=== PATIENT | male | born 1955 | race African-American/Black ===

== ENCOUNTER 2017-10-14 13:55 | Emergency (ER) | payer MEDICAID, OTHER ==
[~2017-10-14] VITALS: Ht 175.3 cm; Wt 110.0 kg
[2017-10-14 15:59] LABS: BASOPHILS % 0.3 % (0.0-2.0); EOSINOPHILS % 0.2 % (0.0-5.0); HEMATOCRIT. 41.1 % (42.0-52.0); HEMOGLOBIN. 13.3 g/dL (14.0-18.0); LYMPHOCYTES % 12.4 % (20.0-50.0); MEAN CORPUSCULAR HEMOGLOBIN 28.4 pg (28.0-32.0); MEAN CORPUSCULAR VOLUME 87.7 fL (80.0-94.0); MEAN PLATELET VOLUME 10.5 fl (7.4-10.4); MONOCYTES % 7.1 % (2.0-8.0); PLATELET 231 x1000/uL (130-400); RED BLOOD CELL COUNT 4.69 mill/uL (4.7-6.1); RED CELL DISTRIBUTION WIDTH 14.3 % (11.6-14.6)
[2017-10-14 16:06] LABS: CARBON DIOXIDE 27 mEq/L (21-32); CHLORIDE 102 mEq/L (98-107); PROTHROMBIN TIME 10.2 sec (9.4-11.6)
[2017-10-14 16:14] LABS: TROPONIN I 0.03 ng/mL (0.00-0.04)
[2017-10-14 19:30] VITALS: BP 165/41
== END 2017-10-14 20:00 | disposition left against medical advice (07) ==
LOC: ER 13:55 → EDBEDREQ 16:43 → ER 20:00 → ENRESERV 21:03 → CANRESERV 21:03 → CANBEDREQ 10-15 08:06
DX: G45.9 Transient cerebral ischemic attack, unspecified (principal); I25.2 Old myocardial infarction; E11.9 Type 2 diabetes mellitus without complications; J44.9 Chronic obstructive pulmonary disease, unspecified; I10 Essential (primary) hypertension; R53.1 Weakness; R07.9 Chest pain, unspecified; R20.0 Anesthesia of skin
CPT/HCPCS: 36415; 70450; 71045; 80053; 82962; 83880; 84484; 85025; 85610; 93005; 99285; Z7610

== ENCOUNTER 2018-04-28 15:51 | Inpatient (IN) | payer SELFPAY ==
[~2018-04-28] VITALS: Ht 193 cm; Wt 100.7 kg
[2018-04-28] MEDS ORDERED: CLOP75TA33 PO (15:58)
[2018-04-28] MEDS ORDERED: ATOR10TA69 PO (15:58)
[2018-04-28] MEDS ORDERED: EMPA10TA PO (15:58)
[2018-04-28] MEDS ORDERED: ASPI-1159 PO (15:58)
[2018-04-28] MEDS ORDERED: LISI10TA5 PO (15:58)
[2018-04-28] MEDS ORDERED: METO-396 PO (15:58)
[2018-04-28] MEDS ORDERED: SITA1TBM4 PO (15:58)
[2018-04-28] MEDS ORDERED: ONDANSETRON HCL 4MG/2ML VIAL IV STA (16:40)
[2018-04-28] MEDS ORDERED: MORPHINE SULFATE 4 MG/ML CPJ (NOT FOR IM USE) IV STA (16:40)
[2018-04-28] MEDS ORDERED: ASPIRIN 81MG TABLET PO ONE (16:45)
[2018-04-28 17:03] LABS: BASOPHILS % 0.3 % (0.0-2.0); EOSINOPHILS % 0.1 % (0.0-5.0); HEMATOCRIT. 41.1 % (42.0-52.0); HEMOGLOBIN. 13.5 g/dL (14.0-18.0); LYMPHOCYTES % 17.8 % (20.0-50.0); MEAN CORPUSCULAR VOLUME 88.2 fL (80.0-94.0); MONOCYTES % 6.7 % (2.0-8.0); NEUTROPHILS % 75.1 % (40.0-76.0); PLATELET 205 x1000/uL (130-400); RED BLOOD CELL COUNT 4.66 mill/uL (4.7-6.1); RED CELL DISTRIBUTION WIDTH 14.3 % (11.6-14.6)
[2018-04-28 17:08] LABS: CHLORIDE 101 mEq/L (98-107); INR 1.1; PROTHROMBIN TIME 11.1 sec (9.4-11.6)
[2018-04-28 17:12] LABS: ETHANOL BLOOD < 10 mg/dL
[2018-04-28 18:20] LABS: D-DIMER 0.77 mg/L FEU (<0.50); PARTIAL THROMBOPLASTIN TIME 24.6 sec (23.4-31.0)
[2018-04-28 19:43] LABS: CLARITY URINE CLEAR (CLEAR); COLOR URINE YELLOW (YELLOW); KETONES URINE NEGATIVE (NEGATIVE); LEUKOCYTE ESTERASE URINE NEGATIVE (NEGATIVE); NITRITE URINE NEGATIVE (NEGATIVE); OCCULT BLOOD URINE NEGATIVE (NEGATIVE); PROTEIN URINE NEGATIVE (NEGATIVE); UROBILINOGEN URINE 0.2 E.U./dL (0.2-1.0)
[2018-04-28 19:52] LABS: *AMPHETAMINES SCREEN URINE NEGATIVE (NEGATIVE); *BARBITURATES SCREEN URINE NEGATIVE (NEGATIVE); *BENZODIAZEPINES SCREEN URINE NEGATIVE (NEGATIVE); *COCAINE SCREEN URINE NEGATIVE (NEGATIVE)
[2018-04-28 19:53] LABS: METHADONE URINE SCREEN NEGATIVE (NEGATIVE); OPIATES URINE SCREEN PRESUMTIVE POSITIVE (NEGATIVE); PHENCYCLIDINE URINE SCREEN NEGATIVE (NEGATIVE)
[2018-04-28 20:00] LABS: CANNABINOID URINE SCREEN NEGATIVE (NEGATIVE)
[2018-04-28] MEDS ORDERED: CLONIDINE 0.1MG TABLET PO PRN (20:45)
[2018-04-28] MEDS ORDERED: LORAZEPAM 0.5MG TABLET PO PRN (20:45)
[2018-04-28] MEDS ORDERED: ACETAMINOPHEN 325MG TABLET PO PRN (20:45)
[2018-04-28] MEDS ORDERED: ENOXAPARIN 40MG/0.4ML SYR SUBCUT SCH (20:45)
[2018-04-28] MEDS ORDERED: ONDANSETRON HCL 4MG/2ML VIAL IV PRN (20:45)
[2018-04-28] MEDS ORDERED: DOCUSATE SODIUM 100MG CAPSULE PO PRN (20:45)
[2018-04-28] MEDS ORDERED: GUAIFENESIN 200MG/10ML SUGAR FREE UDC PO PRN (20:45)
[2018-04-28] MEDS ORDERED: DEXTROSE 50% WATER 50ML SYRINGE IV PRN ×2 (20:45→23:45)
[2018-04-28] MEDS ORDERED: MAGNESIUM/ALUMINUM HYDROXIDE/SIMETHICONE 30ML UDC PO PRN (20:45)
[2018-04-28] MEDS ORDERED: IPRATROPIUM/ALBUTEROL 0.5-3(2.5)MG/3ML NEB INH PRN (20:45)
[2018-04-28] MEDS ORDERED: DIPHENHYDRAMINE 50MG/ML VIAL IV PRN (20:45)
[2018-04-28] MEDS ORDERED: NITROGLYCERIN 0.4MG TABLET SL SL PRN (20:45)
[2018-04-28] MEDS ORDERED: FAMOTIDINE 20MG TABLET PO SCH (21:00)
[2018-04-28] MEDS ORDERED: ASCORBIC ACID 500 MG TABLET PO SCH (21:00)
[2018-04-28] MEDS ORDERED: LISINOPRIL 20MG TABLET PO SCH (21:00)
[2018-04-28] MEDS ORDERED: BLOOD SUGAR DIAGNOSTIC STRIP TEST SCH (21:00)
[2018-04-28] MEDS ORDERED: INSULIN LISPRO 100 UNITS/ML SUBCUT SCH (21:00)
[2018-04-28] MEDS ORDERED: METOPROLOL TARTRATE 25MG TABLET PO SCH (21:00)
[2018-04-28] MEDS ORDERED: ATORVASTATIN CALCIUM 10MG TABLET PO SCH (21:00)
[2018-04-28 23:10] LABS: CREATINE KINASE MB FRACTION 1.3 ng/mL (0.5-3.6)
[2018-04-28] MEDS ORDERED: ZOLPIDEM TARTRATE 5MG TABLET PO PRN (23:30)
[2018-04-28] MEDS ORDERED: NA PHOS,M-B/NA PHOS,DI-BA ENEMA 118ML PR PRN (23:30)
[2018-04-28] MEDS ORDERED: KETOROLAC 15MG/ML VIAL IV PRN (23:30)
[2018-04-28] MEDS ORDERED: ONDANSETRON 4MG ODT PO PRN (23:45)
[2018-04-29] VITALS: BP 126/64
[2018-04-29] MEDS ORDERED: AMLO10TA80 PO (00:32)
[2018-04-29 01:17] VITALS: BP 126/64
[2018-04-29 04:00] VITALS: BP 120/68
[2018-04-29] MEDS ORDERED: BLOOD SUGAR DIAGNOSTIC STRIP TEST SCH (07:20)
[2018-04-29] MEDS ORDERED: INSULIN LISPRO 100 UNITS/ML SUBCUT SCH (07:50)
[2018-04-29] MEDS ORDERED: LISINOPRIL 20MG TABLET PO SCH (09:00)
[2018-04-29] MEDS ORDERED: ASPIRIN 325MG EC TABLET PO SCH ×2 (09:00→10:00)
[2018-04-29] MEDS ORDERED: METOPROLOL TARTRATE 25MG TABLET PO SCH (09:00)
[2018-04-29] MEDS ORDERED: FAMOTIDINE 20MG TABLET PO SCH (09:00)
[2018-04-29] MEDS ORDERED: CLOPIDOGREL 75MG TABLET PO SCH ×2 (09:00→10:00)
[2018-04-29] MEDS ORDERED: ZINC SULFATE 220 MG ( 50 ) CAPSULE PO SCH ×2 (09:00)
[2018-04-29] MEDS ORDERED: ASCORBIC ACID 500 MG TABLET PO SCH (09:00)
[2018-04-29] MEDS ORDERED: ENOXAPARIN 40MG/0.4ML SYR SUBCUT SCH (09:00)
[2018-04-29 09:45] VITALS: BP 116/67
[2018-04-29 12:08] VITALS: BP 115/62
[2018-04-29 12:19] VITALS: BP 112/65
[2018-04-29] MEDS ORDERED: ATORVASTATIN CALCIUM 10MG TABLET PO SCH (21:00)
== END 2018-04-29 13:45 | disposition home or self-care (01) | DRG 198 ==
LOC: ER 18:31 → EDBEDREQ 20:18 → EDBEDREQTM 20:18 → ENRESERV 22:06 → 6WST 23:40 → ER 23:52
PROVIDERS: ADMIT Internal Medicine; ATTEND Internal Medicine
DX: R07.89 Other chest pain (principal); I25.2 Old myocardial infarction; I10 Essential (primary) hypertension; E11.9 Type 2 diabetes mellitus without complications; E78.00 Pure hypercholesterolemia, unspecified; J44.9 Chronic obstructive pulmonary disease, unspecified; Z86.73 Personal history of transient ischemic attack (TIA), and cerebral infarction without residual deficits; Z89.421 Acquired absence of other right toe(s); Z79.02 Long term (current) use of antithrombotics/antiplatelets; Z79.4 Long term (current) use of insulin; Z79.82 Long term (current) use of aspirin; Z79.899 Other long term (current) drug therapy
CPT/HCPCS: 36415; 70450; 71045; 80053; 80061; 80305; 81003; 82550; 82553; 82962; 83036; 83880; 84484; 85025; 85379; 85610; 85730; 93005; 93970; 96374; 96375; 99285; G0482; J1650; J2270; J2405

== ENCOUNTER 2018-10-25 16:30 | Inpatient (IN) | payer MEDICAID, OTHER ==
[~2018-10-25] VITALS: Ht 193 cm; Wt 100.2 kg
[~2018-10-25 16:30] MED LIST: AMLO10TA80 PO; ASPI-1159 PO; ATOR10TA69 PO; CLOP75TA33 PO; EMPA10TA PO; LISI10TA5 PO; METO-396 PO; SITA1TBM4 PO
[2018-10-25] MEDS ORDERED: SODIUM CHLORIDE 0.9% 1,000 ML IV ONE (16:43)
[2018-10-25 17:26] LABS: BASOPHILS % 0.3 % (0.0-2.0); HEMATOCRIT. 37.1 % (42.0-52.0); HEMOGLOBIN. 12.1 g/dL (14.0-18.0); LYMPHOCYTES % 11.7 % (20.0-50.0); MEAN PLATELET VOLUME 9.6 fl (7.4-10.4); MONOCYTES % 6.6 % (2.0-8.0); NEUTROPHILS % 81.4 % (40.0-76.0); PLATELET 208 x1000/uL (130-400); RED BLOOD CELL COUNT 4.03 mill/uL (4.7-6.1); RED CELL DISTRIBUTION WIDTH 14.9 % (11.6-14.6)
[2018-10-25 17:27] LABS: CHLORIDE 100 mEq/L (98-107)
[2018-10-25 17:29] LABS: INR 1.1; PROTHROMBIN TIME 11.2 sec (9.1-11.1)
[2018-10-25 17:31] LABS: ETHANOL BLOOD < 10 mg/dL
[2018-10-25 17:34] LABS: LDL CHOLESTEROL 116 mg/dL (5-100)
[2018-10-25 17:41] LABS: CLARITY URINE CLEAR (CLEAR); COLOR URINE YELLOW (YELLOW); KETONES URINE TRACE (NEGATIVE); LEUKOCYTE ESTERASE URINE NEGATIVE (NEGATIVE); NITRITE URINE NEGATIVE (NEGATIVE); OCCULT BLOOD URINE NEGATIVE (NEGATIVE); PH URINE 7.5 (4.5-8.0); PROTEIN URINE 1+ (NEGATIVE); SPECIFIC GRAVITY URINE 1.018 (1.005-1.030)
[2018-10-25 17:54] LABS: *BARBITURATES SCREEN URINE NEGATIVE (NEGATIVE); *BENZODIAZEPINES SCREEN URINE NEGATIVE (NEGATIVE); *COCAINE SCREEN URINE NEGATIVE (NEGATIVE); METHADONE URINE SCREEN NEGATIVE (NEGATIVE); OPIATES URINE SCREEN NEGATIVE (NEGATIVE)
[2018-10-25 17:55] LABS: *AMPHETAMINES SCREEN URINE NEGATIVE (NEGATIVE); CANNABINOID URINE SCREEN NEGATIVE (NEGATIVE); PHENCYCLIDINE URINE SCREEN NEGATIVE (NEGATIVE)
[2018-10-25] MEDS ORDERED: ONDANSETRON HCL 4MG/2ML INJ IV PRN (18:30)
[2018-10-25] MEDS ORDERED: CLONIDINE 0.1MG TABLET PO PRN (18:30)
[2018-10-25] MEDS ORDERED: GUAIFENESIN 200MG/10ML SUGAR FREE UDC PO PRN (18:30)
[2018-10-25] MEDS ORDERED: MAGNESIUM/ALUMINUM HYDROXIDE/SIMETHICONE 30ML UDC PO PRN (18:30)
[2018-10-25] MEDS ORDERED: CLOPIDOGREL 75MG TABLET PO NR (19:34)
[2018-10-26] VITALS (7 sets, daily range): BP systolic 135–164; BP diastolic 68–84
[2018-10-26] MEDS ORDERED: GLIP10TA10 MT (00:37)
[2018-10-26] MEDS ORDERED: DEXTROSE 50% WATER 50ML SYRINGE IV PRN (00:45)
[2018-10-26] MEDS: METOPROLOL TARTRATE 25MG TABLET PO SCH ×3 (00:45→20:37)
[2018-10-26] MEDS: BLOOD SUGAR DIAGNOSTIC STRIP TEST SCH ×4 (06:23→20:38)
[2018-10-26] MEDS: HYDROCODONE/ACETAMINOPHEN 5/325MG TABLET PO PRN ×2 (06:36→16:01)
[2018-10-26] MEDS: INSULIN LISPRO 100 UNITS/ML SUBCUT SCH ×4 (06:37→20:39)
[2018-10-26 07:24] LABS: BASOPHILS % 0.5 % (0.0-2.0); EOSINOPHILS % 0.1 % (0.0-5.0); HEMATOCRIT. 32.7 % (42.0-52.0); LYMPHOCYTES % 15.8 % (20.0-50.0); MEAN CORPUSCULAR HEMOGLOBIN 30.8 pg (28.0-32.0); MEAN CORPUSCULAR VOLUME 91.6 fL (80.0-94.0); MEAN PLATELET VOLUME 9.7 fl (7.4-10.4); MONOCYTES % 9.1 % (2.0-8.0); NEUTROPHILS % 74.5 % (40.0-76.0); PLATELET 186 x1000/uL (130-400); RED BLOOD CELL COUNT 3.58 mill/uL (4.7-6.1); RED CELL DISTRIBUTION WIDTH 14.8 % (11.6-14.6)
[2018-10-26] MEDS ORDERED: MULT-1234 MT (08:14)
[2018-10-26] MEDS: AMLODIPINE 10MG TABLET PO SCH (09:24)
[2018-10-26] MEDS: CLOPIDOGREL 75MG TABLET PO SCH (09:24)
[2018-10-26 11:57] LABS: CHLORIDE 103 mEq/L (98-107)
[2018-10-26] MEDS: ATORVASTATIN CALCIUM 40MG TABLET PO SCH (20:37)
[2018-10-26] MEDS: HYDROMORPHONE HCL/PF 2MG/ML CPJ IV PRN (20:38)
[2018-10-26] MEDS ORDERED: DIPHENHYDRAMINE 50MG/ML VIAL IV PRN (21:15)
[2018-10-27] VITALS: BP 150/82
[2018-10-27] MEDS: HYDROMORPHONE HCL/PF 2MG/ML CPJ IV PRN ×2 (02:42→21:41)
[2018-10-27 04:00] VITALS: BP 131/79
[2018-10-27] MEDS: ACETAMINOPHEN 325MG TABLET PO PRN ×2 (04:41→15:55)
[2018-10-27] MEDS: BLOOD SUGAR DIAGNOSTIC STRIP TEST SCH ×4 (06:28→20:45)
[2018-10-27] MEDS: INSULIN LISPRO 100 UNITS/ML SUBCUT SCH ×4 (06:28→20:48)
[2018-10-27] MEDS: CLOPIDOGREL 75MG TABLET PO SCH (09:11)
[2018-10-27] MEDS: AMLODIPINE 10MG TABLET PO SCH (09:12)
[2018-10-27] MEDS: METOPROLOL TARTRATE 25MG TABLET PO SCH ×2 (09:13→20:42)
[2018-10-27 12:00] VITALS: BP 155/81
[2018-10-27] MEDS ORDERED: LEVOFLOXACIN 500MG PREMIX 100 ML IV SCH (14:00)
[2018-10-27] MEDS: TAMSULOSIN HCL 0.4MG SR CAPSULE PO SCH (14:40)
[2018-10-27 16:21] VITALS: BP 154/78
[2018-10-27 20:00] VITALS: BP 150/80
[2018-10-27] MEDS: ATORVASTATIN CALCIUM 40MG TABLET PO SCH (20:41)
[2018-10-27] MEDS: HYDROCODONE/ACETAMINOPHEN 5/325MG TABLET PO PRN (21:35)
[2018-10-28] VITALS: BP 149/84
[2018-10-28] MEDS: ACETAMINOPHEN 325MG TABLET PO PRN (00:06)
[2018-10-28 04:00] VITALS: BP 137/74
[2018-10-28] MEDS: BLOOD SUGAR DIAGNOSTIC STRIP TEST SCH ×2 (06:35→11:45)
[2018-10-28] MEDS: INSULIN LISPRO 100 UNITS/ML SUBCUT SCH ×2 (06:41→13:06)
[2018-10-28] MEDS: AMLODIPINE 10MG TABLET PO SCH (08:39)
[2018-10-28] MEDS: CLOPIDOGREL 75MG TABLET PO SCH (08:39)
[2018-10-28] MEDS: TAMSULOSIN HCL 0.4MG SR CAPSULE PO SCH (08:40)
[2018-10-28] MEDS: METOPROLOL TARTRATE 25MG TABLET PO SCH (08:40)
[2018-10-28 12:11] VITALS: BP 142/73
[2018-10-28 13:22] VITALS: BP 142/73
== END 2018-10-28 13:50 | disposition home or self-care (01) | DRG 47 ==
LOC: ER 16:30 → SUPCPDRO 18:24 → 5WST 18:25 → EDBEDREQTM 18:28 → EDBEDREQ 18:28 → EDBEDREQSVC 18:28 → ENRESERV 20:45
PROVIDERS: ADMIT Hospitalist; ATTEND Hospitalist
DX: G45.9 Transient cerebral ischemic attack, unspecified (principal); G93.40 Encephalopathy, unspecified; E11.9 Type 2 diabetes mellitus without complications; E78.5 Hyperlipidemia, unspecified; R39.11 Hesitancy of micturition; R50.9 Fever, unspecified; J44.9 Chronic obstructive pulmonary disease, unspecified; I10 Essential (primary) hypertension; I25.2 Old myocardial infarction; Z86.73 Personal history of transient ischemic attack (TIA), and cerebral infarction without residual deficits; Z79.82 Long term (current) use of aspirin; Z79.899 Other long term (current) drug therapy; Z89.9 Acquired absence of limb, unspecified
CPT/HCPCS: 36415; 70551; 71045; 80305; 82962; 83036; 83721; 84484; 93005; 93880; 93970; 96360; 97161; 99285; G0482; J1170; J1200; J1815; J1956; J7030; J7050

== ENCOUNTER 2019-06-11 19:59 | Inpatient (IN) | payer MEDICAID ==
[~2019-06-11] VITALS: Ht 193 cm; Wt 100.2 kg
[~2019-06-11 19:59] MED LIST changes: -AMLO10TA80 PO; -ASPI-1159 PO; +ASPI-1393 PO; -EMPA10TA PO; +GLIP10TA10 MT; +MULT-1234 MT
[2019-06-11] MEDS ORDERED: SODIUM CHLORIDE 0.9% 1,000 ML IV ONE ×2 (20:30→21:36)
[2019-06-11 21:00] LABS: BASOPHILS % 0.2 % (0.0-2.0); EOSINOPHILS % 0.6 % (0.0-5.0); HEMATOCRIT. 30.3 % (42.0-52.0); HEMOGLOBIN. 10.2 g/dL (14.0-18.0); LYMPHOCYTES % 38.3 % (20.0-50.0); MEAN CORPUSCULAR HEMOGLOBIN 29.8 pg (28.0-32.0); MEAN CORPUSCULAR VOLUME 88.7 fL (80.0-94.0); MEAN PLATELET VOLUME 9.2 fl (7.4-10.4); MONOCYTES % 8.7 % (2.0-8.0); NEUTROPHILS % 52.2 % (40.0-76.0); PLATELET 195 x1000/uL (130-400); RED BLOOD CELL COUNT 3.41 mill/uL (4.7-6.1); RED CELL DISTRIBUTION WIDTH 14.3 % (11.6-14.6)
[2019-06-11 21:07] LABS: PROTHROMBIN TIME 10.7 sec (9.6-11.0)
[2019-06-11 21:10] LABS: CHLORIDE 104 mEq/L (98-107)
[2019-06-11 21:14] LABS: ETHANOL BLOOD 214 mg/dL
[2019-06-11] MEDS ORDERED: DEXTROSE 50% WATER 50ML SYRINGE IV ONE (21:30)
[2019-06-12] VITALS (21 sets, daily range): BP systolic 115–173; BP diastolic 59–83
[2019-06-12] MEDS ORDERED: CALCIUM CHLORIDE 1,000 MG in DEXT 5% WATER 90 ML IV ONE (04:30)
[2019-06-12] MEDS ORDERED: GLUCAGON,HUMAN RECOMBINANT 1MG/VIAL IV SCH (05:45)
[2019-06-12] MEDS ORDERED: CALCIUM CHLORIDE 1,000 MG in DEXT 5% WATER 90 ML IV SCH (05:45)
[2019-06-12] MEDS: DEXT 5%/0.45% NACL 1000ML 1,000 ML IV SCH ×2 (06:14→14:35)
[2019-06-12] MEDS ORDERED: ONDANSETRON HCL 4MG/2ML INJ IV PRN (06:15)
[2019-06-12] MEDS ORDERED: IPRATROPIUM/ALBUTEROL 0.5-3(2.5)MG/3ML NEB HHN PRN (06:15)
[2019-06-12] MEDS ORDERED: MORPHINE SULFATE 2 MG/ML CPJ (NOT FOR IM USE) IV PRN (06:15)
[2019-06-12] MEDS ORDERED: CLONIDINE 0.1MG TABLET PO PRN (06:15)
[2019-06-12] MEDS ORDERED: NA PHOS,M-B/NA PHOS,DI-BA ENEMA 118ML PR PRN (06:15)
[2019-06-12] MEDS ORDERED: LORAZEPAM 2MG/ML CPJ IV PRN (06:15)
[2019-06-12] MEDS ORDERED: GUAIFENESIN 200MG/10ML SUGAR FREE UDC PO PRN (06:15)
[2019-06-12] MEDS ORDERED: HYDROCODONE/ACETAMINOPHEN 10/325MG TABLET PO PRN (06:15)
[2019-06-12] MEDS ORDERED: DIPHENHYDRAMINE 50MG/ML VIAL IV PRN (06:15)
[2019-06-12] MEDS ORDERED: MAGNESIUM/ALUMINUM HYDROXIDE/SIMETHICONE 30ML UDC PO PRN (06:15)
[2019-06-12] MEDS ORDERED: NOREPINEPHRINE 4MG/250ML PMX 250 ML IV ONE (06:45)
[2019-06-12] MEDS ORDERED: NOREPINEPHRINE 4MG/250ML PMX 250 ML IV SCH (06:45)
[2019-06-12] MEDS ORDERED: NOREPINEPHRINE 4 MG in DEXT 5% WATER 246 ML IV ONE (07:15)
[2019-06-12 08:07] LABS: BG BASE EXCESS -14.6 mmol/L (-2.0-2.0); BG CARBOXYHEMOGLOBIN 0.3 % (0.5-1.5); BG DEOXYHEMOGLOBIN 4.5 % (0.0-5.0); BG FRACTION INSPIRED OXYGEN 21; BG HCO3 ACT 10.8 mmol/L (22.0-26.0); BG METHEMOGLOBIN 0.8 % (0.0-1.5); BG OXYGEN SATURATION 95.4 % (92.0-98.5); BG OXYHEMOGLOBIN 94.4 % (94.0-97.0); BG PCO2 24.4 mmHg (35.0-45.0); BG PH 7.264 (7.350-7.450); BG PO2 97.6 mmHg (75.0-100.0); BG SAMPLE SITE RIGHT BRACHIAL; BG TOTAL HEMOGLOBIN 10.5 g/dL (12.0-18.0); BG VENT MODE ROOM AIR
[2019-06-12] MEDS ORDERED: NOREPINEPHRINE 4 MG in DEXTROSE 5% WATER 250 ML IV PRN (09:30)
[2019-06-12] MEDS ORDERED: SODIUM BICARBONATE 8.4% 1 MEQ/ML 50ML SYR IV SCH (10:00)
[2019-06-12] MEDS ORDERED: SODIUM BICARBONATE 8.4% 1 MEQ/ML 50ML SYR IV NR ×2 (10:00)
[2019-06-12 12:09] LABS: T4 FREE 1.03 ng/dL (0.76-1.46)
[2019-06-12 12:19] LABS: BG BASE EXCESS -5.4 mmol/L (-2.0-2.0); BG DEOXYHEMOGLOBIN 4.2 % (0.0-5.0); BG FRACTION INSPIRED OXYGEN 21; BG HCO3 ACT 18.7 mmol/L (22.0-26.0); BG METHEMOGLOBIN 0.2 % (0.0-1.5); BG OXYGEN SATURATION 95.8 % (92.0-98.5); BG OXYHEMOGLOBIN 95.6 % (94.0-97.0); BG PCO2 31.8 mmHg (35.0-45.0); BG PH 7.388 (7.350-7.450); BG SAMPLE SITE RIGHT RADIAL; BG TOTAL HEMOGLOBIN 10.8 g/dL (12.0-18.0); BG VENT MODE ROOM AIR
[2019-06-12 13:34] LABS: CLARITY URINE CLEAR (CLEAR); COLOR URINE YELLOW (YELLOW); KETONES URINE TRACE (NEGATIVE); LEUKOCYTE ESTERASE URINE NEGATIVE (NEGATIVE); NITRITE URINE NEGATIVE (NEGATIVE); OCCULT BLOOD URINE NEGATIVE (NEGATIVE); PROTEIN URINE TRACE (NEGATIVE); SPECIFIC GRAVITY URINE 1.014 (1.005-1.030); UROBILINOGEN URINE 0.2 E.U./dL (0.2-1.0)
[2019-06-12 13:48] LABS: *AMPHETAMINES SCREEN URINE NEGATIVE (NEGATIVE); *BARBITURATES SCREEN URINE NEGATIVE (NEGATIVE); *BENZODIAZEPINES SCREEN URINE NEGATIVE (NEGATIVE); *COCAINE SCREEN URINE NEGATIVE (NEGATIVE); CANNABINOID URINE SCREEN NEGATIVE (NEGATIVE); METHADONE URINE SCREEN NEGATIVE (NEGATIVE); OPIATES URINE SCREEN NEGATIVE (NEGATIVE); PHENCYCLIDINE URINE SCREEN NEGATIVE (NEGATIVE)
[2019-06-12] MEDS: SODIUM CHLORIDE 0.9% INJ 3ML FLUSH IVF SCH ×2 (13:53→22:00)
[2019-06-12 15:06] LABS: CHLORIDE 106 mEq/L (98-107)
[2019-06-12 15:13] LABS: CREATINE KINASE 528 IU/L (39-308)
[2019-06-12 15:15] LABS: CREATINE KINASE MB FRACTION 3.7 ng/mL (0.5-3.6)
[2019-06-12] MEDS ORDERED: ATOR-2 PO (15:45)
[2019-06-12] MEDS ORDERED: AMLO10TA80 PO (15:49)
[2019-06-12] MEDS ORDERED: SERT20OR6 PO (15:49)
[2019-06-12] MEDS ORDERED: OMEP20CA5 PO (15:49)
[2019-06-12] MEDS ORDERED: GABA-290 PO (15:49)
[2019-06-12] MEDS ORDERED: TAMS-11 PO (15:49)
[2019-06-12] MEDS ORDERED: SODIUM POLYSTYRENE SULFONATE 15 G/60 ML BOT PO NR (16:30)
[2019-06-12] MEDS ORDERED: DEXTROSE 50% WATER 50ML SYRINGE IV PRN (17:45)
[2019-06-12] MEDS: INSULIN LISPRO 100 UNITS/ML SUBCUT SCH ×2 (17:50→21:00)
[2019-06-12] MEDS: BLOOD SUGAR DIAGNOSTIC STRIP TEST SCH ×3 (17:51→20:27)
[2019-06-13] VITALS (34 sets, daily range): BP systolic 122–174; BP diastolic 62–94
[2019-06-13 00:42] LABS: CREATINE KINASE MB FRACTION 3.2 ng/mL (0.5-3.6)
[2019-06-13] MEDS: DEXT 5%/0.45% NACL 1000ML 1,000 ML IV SCH ×2 (01:00→12:57)
[2019-06-13] MEDS: BLOOD SUGAR DIAGNOSTIC STRIP TEST SCH ×9 (04:00→21:00)
[2019-06-13 05:51] LABS: CHLORIDE 105 mEq/L (98-107)
[2019-06-13 05:54] LABS: BASOPHILS % 0.2 % (0.0-2.0); EOSINOPHILS % 0.4 % (0.0-5.0); HEMATOCRIT. 32.5 % (42.0-52.0); HEMOGLOBIN. 10.8 g/dL (14.0-18.0); LYMPHOCYTES % 16.4 % (20.0-50.0); MEAN CORPUSCULAR HEMOGLOBIN 29.4 pg (28.0-32.0); MEAN CORPUSCULAR VOLUME 88.9 fL (80.0-94.0); MEAN PLATELET VOLUME 10.1 fl (7.4-10.4); MONOCYTES % 11.1 % (2.0-8.0); NEUTROPHILS % 71.9 % (40.0-76.0); PLATELET 189 x1000/uL (130-400); RED BLOOD CELL COUNT 3.66 mill/uL (4.7-6.1); RED CELL DISTRIBUTION WIDTH 14.3 % (11.6-14.6)
[2019-06-13] MEDS: SODIUM CHLORIDE 0.9% INJ 3ML FLUSH IVF SCH ×3 (06:00→22:00)
[2019-06-13] MEDS: INSULIN LISPRO 100 UNITS/ML SUBCUT SCH ×4 (07:46→22:32)
[2019-06-13 09:56] LABS: BG BASE EXCESS -0.6 mmol/L (-2.0-2.0); BG CARBOXYHEMOGLOBIN 0.3 % (0.5-1.5); BG DEOXYHEMOGLOBIN 3.5 % (0.0-5.0); BG FRACTION INSPIRED OXYGEN 21; BG HCO3 ACT 23.2 mmol/L (22.0-26.0); BG METHEMOGLOBIN 0.3 % (0.0-1.5); BG OXYGEN SATURATION 96.5 % (92.0-98.5); BG OXYHEMOGLOBIN 95.9 % (94.0-97.0); BG PCO2 35.2 mmHg (35.0-45.0); BG PH 7.437 (7.350-7.450); BG PO2 87.6 mmHg (75.0-100.0); BG SAMPLE SITE RIGHT RADIAL; BG TOTAL HEMOGLOBIN 11.1 g/dL (12.0-18.0); BG VENT MODE ROOM AIR
[2019-06-13] MEDS: SODIUM CHLORIDE 0.45% 1,000 ML IV SCH (16:46)
[2019-06-14] VITALS (24 sets, daily range): BP systolic 109–163; BP diastolic 37–87
[2019-06-14] MEDS: SODIUM CHLORIDE 0.45% 1,000 ML IV SCH (02:46)
[2019-06-14 05:19] LABS: BASOPHILS % 0.3 % (0.0-2.0); EOSINOPHILS % 0.8 % (0.0-5.0); LYMPHOCYTES % 23.2 % (20.0-50.0); MEAN PLATELET VOLUME 9.5 fl (7.4-10.4); MONOCYTES % 11.6 % (2.0-8.0); NEUTROPHILS % 64.1 % (40.0-76.0); PLATELET 181 x1000/uL (130-400); RED BLOOD CELL COUNT 3.67 mill/uL (4.7-6.1); RED CELL DISTRIBUTION WIDTH 14.2 % (11.6-14.6)
[2019-06-14 05:24] LABS: CHLORIDE 104 mEq/L (98-107)
[2019-06-14] MEDS: SODIUM CHLORIDE 0.9% INJ 3ML FLUSH IVF SCH ×3 (06:00→21:29)
[2019-06-14] MEDS: BLOOD SUGAR DIAGNOSTIC STRIP TEST SCH ×3 (08:35→20:58)
[2019-06-14] MEDS: INSULIN LISPRO 100 UNITS/ML SUBCUT SCH ×4 (08:35→21:29)
[2019-06-14] MEDS ORDERED: BRIM5DRO6 EACHEYE (18:26)
[2019-06-14] MEDS: ACETAMINOPHEN 325MG TABLET PO PRN (20:53)
[2019-06-15 04:00] VITALS: BP 150/83
[2019-06-15] MEDS: SODIUM CHLORIDE 0.9% INJ 3ML FLUSH IVF SCH ×3 (05:25→21:20)
[2019-06-15] MEDS: INSULIN LISPRO 100 UNITS/ML SUBCUT SCH ×4 (06:37→21:29)
[2019-06-15] MEDS: BLOOD SUGAR DIAGNOSTIC STRIP TEST SCH ×4 (06:37→21:23)
[2019-06-15 08:00] VITALS: BP 134/70
[2019-06-15] MEDS: BRIMONIDINE 0.2% OPHTH DROPS 5ML EACHEYE SCH ×2 (08:16→17:01)
[2019-06-15 12:00] VITALS: BP 127/68
[2019-06-15 16:00] VITALS: BP 134/73
[2019-06-15 19:41] VITALS: BP 136/72
[2019-06-15] MEDS: ACETAMINOPHEN 325MG TABLET PO PRN (21:16)
[2019-06-16] VITALS: BP 126/62
[2019-06-16 04:00] VITALS: BP 132/79
[2019-06-16] MEDS: BLOOD SUGAR DIAGNOSTIC STRIP TEST SCH ×4 (06:18→21:35)
[2019-06-16] MEDS: SODIUM CHLORIDE 0.9% INJ 3ML FLUSH IVF SCH ×3 (06:23→21:36)
[2019-06-16] MEDS: INSULIN LISPRO 100 UNITS/ML SUBCUT SCH ×4 (06:38→21:35)
[2019-06-16 08:00] VITALS: BP 136/81
[2019-06-16] MEDS: BRIMONIDINE 0.2% OPHTH DROPS 5ML EACHEYE SCH ×2 (08:59→17:16)
[2019-06-16 12:00] VITALS: BP 132/67
[2019-06-16 16:00] VITALS: BP 157/76
[2019-06-16 20:35] VITALS: BP 145/83
[2019-06-17] VITALS: BP 111/62
[2019-06-17 04:00] VITALS: BP 123/64
[2019-06-17] MEDS: SODIUM CHLORIDE 0.9% INJ 3ML FLUSH IVF SCH ×3 (05:30→21:30)
[2019-06-17] MEDS: BLOOD SUGAR DIAGNOSTIC STRIP TEST SCH ×4 (06:17→21:29)
[2019-06-17] MEDS: INSULIN LISPRO 100 UNITS/ML SUBCUT SCH ×4 (06:18→21:51)
[2019-06-17 08:00] VITALS: BP 124/78
[2019-06-17] MEDS: BRIMONIDINE 0.2% OPHTH DROPS 5ML EACHEYE SCH ×2 (08:50→17:04)
[2019-06-17] MEDS: DOCUSATE SODIUM 100MG CAPSULE PO PRN (09:19)
[2019-06-17 12:00] VITALS: BP 137/75
[2019-06-17 16:00] VITALS: BP 124/63
[2019-06-17 20:00] VITALS: BP 150/77
[2019-06-17] MEDS: ACETAMINOPHEN 325MG TABLET PO PRN (21:52)
[2019-06-18] VITALS: BP 132/71
[2019-06-18 04:00] VITALS: BP 111/58
[2019-06-18] MEDS: SODIUM CHLORIDE 0.9% INJ 3ML FLUSH IVF SCH ×3 (06:29→21:55)
[2019-06-18] MEDS: BLOOD SUGAR DIAGNOSTIC STRIP TEST SCH ×4 (06:29→21:43)
[2019-06-18] MEDS: DOCUSATE SODIUM 100MG CAPSULE PO PRN (06:29)
[2019-06-18] MEDS: INSULIN LISPRO 100 UNITS/ML SUBCUT SCH ×4 (06:40→21:51)
[2019-06-18 08:00] VITALS: BP 140/82
[2019-06-18] MEDS: BRIMONIDINE 0.2% OPHTH DROPS 5ML EACHEYE SCH ×2 (09:03→16:51)
[2019-06-18 11:09] LABS: BASOPHILS % 0.3 % (0.0-2.0); EOSINOPHILS % 0.8 % (0.0-5.0); HEMATOCRIT. 33.4 % (42.0-52.0); HEMOGLOBIN. 10.9 g/dL (14.0-18.0); LYMPHOCYTES % 22.9 % (20.0-50.0); MEAN CORPUSCULAR HEMOGLOBIN 29.6 pg (28.0-32.0); MEAN CORPUSCULAR VOLUME 90.6 fL (80.0-94.0); MEAN PLATELET VOLUME 9.9 fl (7.4-10.4); MONOCYTES % 7.8 % (2.0-8.0); NEUTROPHILS % 68.2 % (40.0-76.0); PLATELET 196 x1000/uL (130-400); RED BLOOD CELL COUNT 3.69 mill/uL (4.7-6.1)
[2019-06-18 11:11] LABS: CHLORIDE 104 mEq/L (98-107)
[2019-06-18] MEDS: GABAPENTIN 300MG CAPSULE PO SCH ×2 (11:26→16:51)
[2019-06-18] MEDS: ASPIRIN 81MG TABLET PO SCH (11:27)
[2019-06-18] MEDS: AMLODIPINE 10MG TABLET PO SCH (11:27)
[2019-06-18] MEDS: LISINOPRIL 20MG TABLET PO SCH (11:27)
[2019-06-18] MEDS: CLOPIDOGREL 75MG TABLET PO SCH (11:27)
[2019-06-18] MEDS: MULTIVITAMINS,THER W-MINERALS TABLET PO SCH (11:27)
[2019-06-18 12:00] VITALS: BP 154/71
[2019-06-18 16:00] VITALS: BP 117/61
[2019-06-18 20:00] VITALS: BP_SYST 108; BP_SYST 110; BP_DIAS 63
[2019-06-18] MEDS: METOPROLOL TARTRATE 25MG TABLET PO SCH (21:00)
[2019-06-18] MEDS: SERTRALINE HCL 25MG TABLET PO SCH (21:48)
[2019-06-18] MEDS: ATORVASTATIN CALCIUM 40MG TABLET PO SCH (21:49)
[2019-06-18] MEDS: TAMSULOSIN HCL 0.4MG SR CAPSULE PO SCH (21:54)
[2019-06-19] VITALS: BP 150/83
[2019-06-19 04:00] VITALS: BP 138/72
[2019-06-19 06:12] LABS: CHLORIDE 106 mEq/L (98-107)
[2019-06-19] MEDS: BLOOD SUGAR DIAGNOSTIC STRIP TEST SCH ×4 (06:15→21:27)
[2019-06-19] MEDS: SODIUM CHLORIDE 0.9% INJ 3ML FLUSH IVF SCH ×3 (06:19→21:27)
[2019-06-19] MEDS: INSULIN LISPRO 100 UNITS/ML SUBCUT SCH ×4 (06:20→21:30)
[2019-06-19 06:23] LABS: BASOPHILS % 0.4 % (0.0-2.0); EOSINOPHILS % 1.3 % (0.0-5.0); HEMATOCRIT. 31.3 % (42.0-52.0); HEMOGLOBIN. 10.3 g/dL (14.0-18.0); LYMPHOCYTES % 27.5 % (20.0-50.0); MEAN CORPUSCULAR HEMOGLOBIN 29.3 pg (28.0-32.0); MEAN CORPUSCULAR VOLUME 89.2 fL (80.0-94.0); MONOCYTES % 8.9 % (2.0-8.0); NEUTROPHILS % 61.9 % (40.0-76.0); PLATELET 196 x1000/uL (130-400); RED BLOOD CELL COUNT 3.51 mill/uL (4.7-6.1)
[2019-06-19 08:00] VITALS: BP 140/73
[2019-06-19] MEDS: BRIMONIDINE 0.2% OPHTH DROPS 5ML EACHEYE SCH ×2 (09:02→17:12)
[2019-06-19] MEDS: ASPIRIN 81MG TABLET PO SCH (09:03)
[2019-06-19] MEDS: SERTRALINE HCL 25MG TABLET PO SCH (09:03)
[2019-06-19] MEDS: LISINOPRIL 20MG TABLET PO SCH (09:03)
[2019-06-19] MEDS: METOPROLOL TARTRATE 25MG TABLET PO SCH ×2 (09:03→21:22)
[2019-06-19] MEDS: CLOPIDOGREL 75MG TABLET PO SCH (09:03)
[2019-06-19] MEDS: AMLODIPINE 10MG TABLET PO SCH (09:03)
[2019-06-19] MEDS: MULTIVITAMINS,THER W-MINERALS TABLET PO SCH (09:03)
[2019-06-19] MEDS: GABAPENTIN 300MG CAPSULE PO SCH ×2 (09:04→17:12)
[2019-06-19 12:00] VITALS: BP 125/70
[2019-06-19 16:00] VITALS: BP 125/70
[2019-06-19 20:00] VITALS: BP 147/72
[2019-06-19] MEDS: ATORVASTATIN CALCIUM 40MG TABLET PO SCH (21:22)
[2019-06-19] MEDS: TAMSULOSIN HCL 0.4MG SR CAPSULE PO SCH (21:22)
[2019-06-20] VITALS: BP 147/73
[2019-06-20 04:00] VITALS: BP 131/67
[2019-06-20] MEDS: SODIUM CHLORIDE 0.9% INJ 3ML FLUSH IVF SCH ×3 (05:08→21:30)
[2019-06-20] MEDS: BLOOD SUGAR DIAGNOSTIC STRIP TEST SCH ×4 (06:23→21:24)
[2019-06-20 08:00] VITALS: BP 138/64
[2019-06-20] MEDS: INSULIN LISPRO 100 UNITS/ML SUBCUT SCH ×4 (08:18→21:24)
[2019-06-20] MEDS: SERTRALINE HCL 25MG TABLET PO SCH (08:20)
[2019-06-20] MEDS: MULTIVITAMINS,THER W-MINERALS TABLET PO SCH (08:21)
[2019-06-20] MEDS: CLOPIDOGREL 75MG TABLET PO SCH (08:21)
[2019-06-20] MEDS: GABAPENTIN 300MG CAPSULE PO SCH ×2 (08:21→18:01)
[2019-06-20] MEDS: METOPROLOL TARTRATE 25MG TABLET PO SCH ×2 (08:21→21:20)
[2019-06-20] MEDS: AMLODIPINE 10MG TABLET PO SCH (08:22)
[2019-06-20] MEDS: ASPIRIN 81MG TABLET PO SCH (08:22)
[2019-06-20] MEDS: LISINOPRIL 20MG TABLET PO SCH (08:22)
[2019-06-20] MEDS: BRIMONIDINE 0.2% OPHTH DROPS 5ML EACHEYE SCH ×2 (08:22→18:01)
[2019-06-20 12:00] VITALS: BP 131/60
[2019-06-20 16:00] VITALS: BP 152/64
[2019-06-20 20:00] VITALS: BP 120/74
[2019-06-20] MEDS: TAMSULOSIN HCL 0.4MG SR CAPSULE PO SCH (21:21)
[2019-06-20] MEDS: ATORVASTATIN CALCIUM 40MG TABLET PO SCH (21:22)
[2019-06-21] VITALS: BP 131/75
[2019-06-21 04:00] VITALS: BP 129/71
[2019-06-21] MEDS: SODIUM CHLORIDE 0.9% INJ 3ML FLUSH IVF SCH (05:29)
[2019-06-21 06:00] VITALS: BP 129/68
[2019-06-21] MEDS: BLOOD SUGAR DIAGNOSTIC STRIP TEST SCH ×2 (07:22→12:59)
[2019-06-21 08:00] VITALS: BP 150/77
[2019-06-21] MEDS: AMLODIPINE 10MG TABLET PO SCH (08:16)
[2019-06-21] MEDS: MULTIVITAMINS,THER W-MINERALS TABLET PO SCH (08:16)
[2019-06-21] MEDS: CLOPIDOGREL 75MG TABLET PO SCH (08:16)
[2019-06-21] MEDS: SERTRALINE HCL 25MG TABLET PO SCH (08:16)
[2019-06-21] MEDS: GABAPENTIN 300MG CAPSULE PO SCH (08:16)
[2019-06-21] MEDS: ASPIRIN 81MG TABLET PO SCH (08:16)
[2019-06-21] MEDS: INSULIN LISPRO 100 UNITS/ML SUBCUT SCH ×2 (08:17→13:04)
[2019-06-21] MEDS: LISINOPRIL 20MG TABLET PO SCH (08:17)
[2019-06-21] MEDS: METOPROLOL TARTRATE 25MG TABLET PO SCH (08:17)
[2019-06-21] MEDS: BRIMONIDINE 0.2% OPHTH DROPS 5ML EACHEYE SCH (08:27)
[2019-06-21 12:00] VITALS: BP 138/80
[2019-06-21 13:33] VITALS: BP 146/64
== END 2019-06-21 13:58 | disposition home or self-care (01) | DRG 812 ==
LOC: ER 22:30 → EDBEDREQTM 06-12 05:36 → EDBEDREQSVC 06-12 05:36 → ENRESERV 06-12 07:17 → CVICU 06-12 09:17 → 5WST 06-14 12:06 → 6EST 06-19 20:47
PROVIDERS: ADMIT Internal Medicine; ATTEND Internal Medicine
DX: T50.902A Poisoning by unspecified drugs, medicaments and biological substances, intentional self-harm, initial encounter (principal); N17.0 Acute kidney failure with tubular necrosis; E11.649 Type 2 diabetes mellitus with hypoglycemia without coma; E87.2 Acidosis; I95.9 Hypotension, unspecified; E83.42 Hypomagnesemia; R45.851 Suicidal ideations; T51.92XA Toxic effect of unspecified alcohol, intentional self-harm, initial encounter; D64.9 Anemia, unspecified; I10 Essential (primary) hypertension; F32.9 Major depressive disorder, single episode, unspecified; E87.6 Hypokalemia; Y90.7 Blood alcohol level of 200-239 mg/100 ml; F10.10 Alcohol abuse, uncomplicated; I25.10 Atherosclerotic heart disease of native coronary artery without angina pectoris; E78.5 Hyperlipidemia, unspecified; Z79.02 Long term (current) use of antithrombotics/antiplatelets; Z86.73 Personal history of transient ischemic attack (TIA), and cerebral infarction without residual deficits; Z79.84 Long term (current) use of oral hypoglycemic drugs; Z79.899 Other long term (current) drug therapy; Y92.89 Other specified places as the place of occurrence of the external cause
CPT/HCPCS: 36415; 36600; 71045; 80048; 80061; 80305; 80307; 80320; 80329; 81003; 82375; 82550; 82553; 82805; 82962; 83036; 83605; 83735; 83880; 84439; 84443; 84484; 85379; 93005; 93306; 93970; 99291; J1610; J1815; J2405; J3490; J7030; J7060; G0480

== ENCOUNTER 2023-11-05 14:14 | Emergency (ER) | payer MEDICAID, OTHER ==
[~2023-11-05] VITALS: Ht 185.4 cm; Wt 92.0 kg
[~2023-11-05 14:14] MED LIST changes: +AMLO10TA80 PO; -ASPI-1393 PO; +ASPI-1497 PO; +ATOR-2 PO; -ATOR10TA69 PO; +BRIM5DRO6 EACHEYE; +GABA-290 PO; +LISI10TA26 PO; -LISI10TA5 PO; +OMEP20CA14 PO; +SERT20OR6 PO; +TAMS-11 PO
[2023-11-05 14:29] VITALS: O2SAT 98
[2023-11-05] MEDS: KETOROLAC 60MG/2ML VIAL IM ONE (15:08)
[2023-11-05 17:56] VITALS: BP 138/62; PULSE 72; RESP 16; TEMP 98.5
== END 2023-11-05 17:57 | disposition left against medical advice (07) ==
LOC: ER 14:14
DX: M25.511 Pain in right shoulder (principal); M54.2 Cervicalgia; E11.9 Type 2 diabetes mellitus without complications; I10 Essential (primary) hypertension; Z79.899 Other long term (current) drug therapy; V49.49XA Driver injured in collision with other motor vehicles in traffic accident, initial encounter; Y93.89 Activity, other specified; Y92.89 Other specified places as the place of occurrence of the external cause; Y99.8 Other external cause status
CPT/HCPCS: 99285; 70450; 73030; 96372; J1885